=== PATIENT | male | born 1990 | race American Indian/Alaskan Native ===

== ENCOUNTER 2016-12-23 03:16 | Emergency (ER) | payer OTHER ==
[2016-12-23 03:32] VITALS: BP 102/64
--- NOTE | 2016-12-23 03:52 | Emergency Department Report ---
ED Male HPI - General Chief complaint: Urogenital-Male Stated complaint: POSS STD Time Seen by Provider: 12/23/16 03:43 Source: patient Mode of arrival: Ambulatory Limitations: No Limitations - History of Present Illness Initial comments: This is a 25-year-old male that presents with possibility STD exposure. Patient stated he was informed by sexual partner that she is currently STD positive. Patient denies pedal discharge, dysuria, polyuria, ulcers, chest pain , shortness of breath, nausea or vomiting. Patient does not seem toxic or ill in appearance. No signs of distress noted. Radiation: none denies other symptoms. denies: discharge, swelling, mass, rash, urinary retention, blood in urine, dysuria, fever, nausea/vomiting, incontinence - Related Data Previous Rx's Medication Instructions Recorded Last Taken Type levETIRAcetam [Keppra ORAL LIQ] 500 mg PO BID #1 bottle 06/24/15 Unknown Rx Allergies Allergy/AdvReac Type Severity Reaction Status Date / Time No Known Allergies Allergy Unverified 06/24/15 02:45 ED Review of Systems ROS: Stated complaint: POSS STD Other details as noted in HPI Constitutional: denies: chills, fever Eyes: denies: eye pain, eye discharge, vision change ENT: denies: ear pain, throat pain Respiratory: denies: cough, shortness of breath, wheezing Cardiovascular: denies: chest pain, palpitations Endocrine: no symptoms reported Gastrointestinal: denies: abdominal pain, nausea, diarrhea Genitourinary: denies: urgency, dysuria Musculoskeletal: denies: back pain, joint swelling, arthralgia Skin: denies: rash, lesions Neurological: denies: headache, weakness, paresthesias Psychiatric: denies: anxiety, depression Hematological/Lymphatic: denies: easy bleeding, easy bruising ED Past Medical Hx - Past Medical History Hx Seizures: Yes - Surgical History Past Surgical History?: No - Social History Smoking Status: Never Smoker Substance Use Type: None - Medications Home Medications: Home Medications Medication Instructions Recorded Confirmed Last Taken Type levETIRAcetam [Keppra ORAL LIQ] 500 mg PO BID #1 bottle 06/24/15 12/23/16 Unknown Rx ED Physical Exam - General Limitations: No Limitations General appearance: alert, in no apparent distress - Head Head exam: Present: atraumatic, normocephalic - Eye Eye exam: Present: normal appearance - ENT ENT exam: Present: mucous membranes moist - Neck Neck exam: Present: normal inspection - Respiratory Respiratory exam: Present: normal lung sounds bilaterally. Absent: respiratory distress - Cardiovascular Cardiovascular Exam: Present: regular rate, normal rhythm. Absent: systolic murmur, diastolic murmur, rubs, gallop - GI/Abdominal GI/Abdominal exam: Present: soft, normal bowel sounds - Rectal Rectal exam: Present: deferred - exam: Present: normal inspection. Absent: testicular tenderness, urethral discharge, scrotal swelling, vertical testicular lie External exam: Present: normal external exam. Absent: erythema, swelling, lesions, lacerations, ecchymosis, bleeding - Extremities Exam Extremities exam: Present: normal inspection - Back Exam Back exam: Present: normal inspection - Neurological Exam Neurological exam: Present: alert, oriented X3 - Psychiatric Psychiatric exam: Present: normal affect, normal mood - Skin Skin exam: Present: warm, dry, intact, normal color. Absent: rash ED Course Vital Signs 12/23/16 03:24 Temperature 97.7 F Pulse Rate 65 Respiratory 18 Rate Blood Pressure 102/64 Blood Pressure 102/64 [Left] O2 Sat by Pulse 99 Oximetry ED Medical Decision Making - Medical Decision Making ED course: 25-year-old male that presents with STD testing 1- I informed the patient that gonorrhea chlamydia results will not be available today but he can call back in 7 days to medical records to obtain results. I also instructed the patient that if he is concerned about STD exposure I can't treat him with Rocephin 250 mg IM and azithromycin 1 g by mouth in the ED. Patient stated he would rather wait for results and if positive then to be treated as an outpatient setting. 2- I informed the patient to call back in 7 days medical records to obtain results of gonorrhea chlamydia. 3- UA and gonorrhea chlamydia obtained and sent to lab. 4-at the time of discharge the patient does not seem toxic or ill in appearance. No signs of any distress noted. Patient agrees to follow-up with medical records for the results of gonorrhea/chlamydia. Patient agrees to discharge plan. No further questions nor by the patient. Critical care attestation.: If time is entered above; I have spent that time in minutes in the direct care of this critically ill patient, excluding procedure time. ED Disposition Clinical Impression: Screen for STD (sexually transmitted disease) Disposition: DISCHARGED TO HOME OR SELFCARE Is pt being admited?: No Does the pt Need Aspirin: No Condition: Stable Additional Instructions: Follow-up with [facility] medical records in 7 days for results of gonorrhea or chlamydia Follow-up with your primary care doctor in 3-5 days. Referrals: PRIMARY CARE, [Primary Care Provider] - 3-5 Days [facility] [Referring] - 3-5 Days Forms: Work/School Release Form(ED)
[2016-12-23 04:27] LABS: Bilirubin,Urine NEG (Negative); Blood,Urine NEG (Negative); Ketones,Urine NEG (Negative); Leukocyte Esterase,Urine NEG (Negative); Nitrite,Urine NEG (Negative); Protein,Urine <15 mg/dL mg/dL (Negative); Urobilinogen,Urine < 2.0 mg/dL (<2.0)
== END 2016-12-23 04:41 | disposition home or self-care (01) ==
LOC: ED 03:16
DX: Z11.3 Encounter for screening for infections with a predominantly sexual mode of transmission (principal)
CPT/HCPCS: 81001; 87591; 99283

== ENCOUNTER 2019-01-30 00:54 | Emergency (ER) | payer SELFPAY ==
[2019-01-30 01:00] VITALS: BP 131/83
== END 2019-01-30 02:18 | disposition left against medical advice (07) ==
LOC: ED 00:54
DX: R56.9 Unspecified convulsions (principal); Z53.21 Procedure and treatment not carried out due to patient leaving prior to being seen by health care provider

== ENCOUNTER 2019-03-19 13:31 | Emergency (ER) | payer SELFPAY ==
[2019-03-19] MEDS ORDERED: KEPPRA 1,000 MG/NS 0.75% 100ML 1,000 MG/100 ML BAG IV ONE (14:16)
[2019-03-19 14:38] LABS: Basophils % (Auto) 0.6 % (0.0-1.8); Eosinophils # (Auto) 0.1 K/mm3 (0.0-0.4); Eosinophils % (Auto) 1.3 % (0.0-4.3); Hematocrit 45.3 % (35.5-45.6); Hemoglobin 15.3 gm/dl (11.8-15.2); Lymphocytes % (Auto) 26.5 % (13.4-35.0); Mean Corpuscular HGB Conc 34 % (32-34); Mean Corpuscular Volume 77 fl (84-94); Monocytes # (Auto) 0.4 K/mm3 (0.0-0.8); Monocytes % (Auto) 9.3 % (0.0-7.3); Platelet Count 186 K/mm3 (140-440); Red Blood Count 5.86 M/mm3 (3.65-5.03); Red Cell Distribution Width 13.6 % (13.2-15.2)
--- NOTE | 2019-03-19 14:49 | Event Note ---
Date: 03/19/19 Medical screening examination: This is a 28-year-old gentleman who presents to the ER with a complaint of possible seizure. The patient states he is supposed to take Keppra, 1500 mg twice daily. He indicates he is not really been taking his medicines. Apparently, he was seen at [facility] earlier on today, for seizure. He doesn't know how he got to the hospital, but he thinks the EMS to come here. He indicates no midline cervical spine tenderness. The patient is playing on a cellular phone, it is noted to be playing with social media. He also yawns repeatedly during his initial screening examination. He is moving 4 extremities without difficulty he has been loaded with Keppra. Screening laboratory marianela dies, EKG ordered, noncontrast CT scan of brain ordered. Vital Signs 03/19/19 14:09 Temperature 98.7 F Pulse Rate 65 Respiratory 16 Rate Blood Pressure 112/67 O2 Sat by Pulse 100 Oximetry Lab Results 03/19/19 Range/Units 14:23 WBC 3.9 L (4.5-11.0) K/mm3 RBC 5.86 H (3.65-5.03) M/mm3 Hgb 15.3 H (11.8-15.2) gm/dl Hct 45.3 (35.5-45.6) % MCV 77 L (84-94) fl MCH 26 L (28-32) pg MCHC 34 (32-34) % RDW 13.6 (13.2-15.2) % Plt Count 186 (140-440) K/mm3 Lymph % (Auto) 26.5 (13.4-35.0) % Swift % (Auto) 9.3 H (0.0-7.3) % Eos % (Auto) 1.3 (0.0-4.3) % Baso % (Auto) 0.6 (0.0-1.8) % Lymph # 1.0 L (1.2-5.4) K/mm3 Swift # 0.4 (0.0-0.8) K/mm3 Eos # 0.1 (0.0-0.4) K/mm3 Baso # 0.0 (0.0-0.1) K/mm3 Seg Neutrophils % 62.3 (40.0-70.0) % Seg Neutrophils # 2.4 (1.8-7.7) K/mm3
[2019-03-19 14:53] LABS: BUN/Creatinine Ratio 13; Blood Urea Nitrogen 12 mg/dL (9-20); Calcium 9.4 mg/dL (8.4-10.2); Hemolysis Index 11
[2019-03-19 16:10] LABS: Bilirubin,Urine NEG (Negative); Blood,Urine NEG (Negative); Color,Urine Yellow (Yellow); Mucus,Urine FEW /HPF; Protein,Urine <15 mg/dL mg/dL (Negative); Urobilinogen,Urine < 2.0 mg/dL (<2.0)
[2019-03-19 16:21] LABS: Amphetamine Screen,Urine PRESUMPTIVE NEGATIVE; Benzodiazepines Screen,Urine PRESUMPTIVE NEGATIVE; Cannabinoid Screen,Urine PRESUMPTIVE NEGATIVE; Cocaine Screen,Urine PRESUMPTIVE NEGATIVE; Methadone Screen,Urine PRESUMPTIVE NEGATIVE; Opiate Screen,Urine PRESUMPTIVE NEGATIVE
--- NOTE | 2019-03-19 16:25 | Cat Scan Report ---
CT HEAD WITHOUT CONTRAST INDICATION : Seizure. TECHNIQUE: Axial imaging performed from the skull apex through the skull base without the use of con trast. All CT scans at this location are performed using CT dose reduction for ALARA by means of aut omated exposure control. COMPARISON: None FINDINGS: Parenchyma: No acute intracranial hemorrhage or parenchymal abnormality. Ventricles: Ventricles are normal in size and appear symmetric. Bones: No acute osseous abnormality. Sinuses: Sinuses and mastoid air cells are clear. Soft tissues: Soft tissues including the orbits appear normal. IMPRESSION: No acute abnormality. Signer Name: German Adhikari Jr, MD Signed: 03/19/2019 4:21 PM Workstation Name: [id number]
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
[2019-03-20] MEDS ORDERED: NON-FORMULARY (Levetiracetam [Keppra Tab] 1,500 MG) PO SCH (10:15)
[2019-03-20] MEDS ORDERED: KEPPRA PO SCH (11:00)
--- NOTE | 2019-03-20 12:39 | Consultation ---
History of Present Illness - Reason for Consult Consult date: 03/20/19 Reason for consult: Mental Health Evaluation Requesting physician: MOLLY TELLEZ - Chief Complaint Chief complaint: "I was upset" - History of Present Psychiatric Illness 28-year-old AA male who presented to the ER for seizure activity. Psychiatry was consulted because the patient showed the ER physician a text message stating t hat he wanted to kill himself. Today the patient was calm during the assessment. He stated that he had an argument with his girlfriend who told him she didn't want to be in a relationship anymore. He stated that her "words" hurt him and he didn't know what else to do. He stated that he felt "helpless" at the time when he sent the text message. He denies a previous suicide attempt nor a mental heal th dx when asked. He is adamant that he was upset yesterday. He denies SI/HI's and VH's. He denies erratic sleep and a poor appetite. He denies recreational drug use and a alcohol consumption (etoh). Medications and Allergies Allergies Allergy/AdvReac Type Severity Reaction Status Date / Time mushroom Allergy Unknown Verified 01/30/19 00:58 strawberry Allergy Unknown Verified 01/30/19 00:58 tomato Allergy Unknown Verified 01/30/19 00:58 Home Medications Medication Instructions Recorded Confirmed Last Taken Type ALBUTEROL Inhaler (OR & NICU) 2 puff IH Q6H PRN 03/19/19 03/19/19 Unknown History [Proair] levETIRAcetam [Keppra TAB] 1,500 mg PO QDAY 03/19/19 03/19/19 Unknown History Active Meds: Active Medications Levetiracetam (Keppra) 1,500 mg PO QDAY SHADI Last Admin: 03/20/19 11:05 Dose: 1,500 mg Documented by: Past psychiatric history - Past Medical History Past Medical History: seizures Past Surgical History: No surgical history, Other - past Psychiatric treatment and history psychiatric treatment history: Denies psy hx and a fam psy hx. - Social History Social history: lives with family Mental Status Exam - Vital signs Last Vital Signs Temp 97.7 F 03/20/19 07:00 Pulse 73 03/20/19 07:00 Resp 18 03/20/19 07:00 BP 109/71 03/20/19 07:00 Pulse Ox 99 03/20/19 07:00 - Exam Narrative exam: MSE: Appearance: calm Behavior: regular eye contact Speech: regular rate and tone l Mood: "okay" Affect: congruent to mood Thought Process: circumstantial Thought Content: denies SI/HI's and AVH's Motor Activity: sitting down Cognition: A/O x3 Insight: variable Judgment: poor Results Result Diagrams: 03/19/19 14:23 03/19/19 14:23 Abnormal lab results 03/19/19 03/19/19 03/19/19 Range/Units 14:23 14:23 14:23 WBC 3.9 L (4.5-11.0) K/mm3 RBC 5.86 H (3.65-5.03) M/mm3 Hgb 15.3 H (11.8-15.2) gm/dl MCV 77 L (84-94) fl MCH 26 L (28-32) pg Mellette % (Auto) 9.3 H (0.0-7.3) % Lymph # 1.0 L (1.2-5.4) K/mm3 Total Creatine Kinase (55-170) units/L Salicylates < 0.3 L (2.8-20.0) mg/dL Acetaminophen < 5.0 L (10.0-30.0) ug/mL 03/19/19 Range/Units 14:23 WBC (4.5-11.0) K/mm3 RBC (3.65-5.03) M/mm3 Hgb (11.8-15.2) gm/dl MCV (84-94) fl MCH (28-32) pg Mellette % (Auto) (0.0-7.3) % Lymph # (1.2-5.4) K/mm3 Total Creatine Kinase 224 H (55-170) units/L Salicylates (2.8-20.0) mg/dL Acetaminophen (10.0-30.0) ug/mL All other labs normal. Assessment and Plan Assessment and plan: Impression: MDD, Single Episode. Today the patient was calm during the assessment. DDx: R/O Bipolar DO, Adjustment DO Recommendation/Plan: Continue 1013. Gather collateral information. Risks/Benefits of SSRI's was discussed with the patient, he prefer talk therapy. Dispo: The patient was referred to inpatient psy services. Will staff with Dr. Mehul Rome.
[2019-03-20] MEDS ORDERED: TYLENOL PO ONE (21:20)
[2019-03-20] MEDS: KEPPRA PO SCH (21:58)
[2019-03-21] MEDS: KEPPRA PO SCH ×2 (11:04→22:29)
--- NOTE | 2019-03-21 14:04 | Progress Note ---
Subjective - Reason for Consult Consult date: 03/21/19 Reason for consult: Psychiatric Follow-up Evaluation - Chief Complaint Chief complaint: "I'm feeling great" Patient is a 28-year-old AA male who presented to the emergency room for seizure activity. Psychiatry was consulted because the patient showed the ER physician a text message stating that he wanted to kill himself. Today the patient is cooperative but very anxious during the assessment. He states" I bought my girlfriend a $50,000 wedding ring. I found out she was cheating on me. It caused me to have a seizure. I felt betrayed." Presents with grandiose delusions. Patient denies SI/HI's and A/VH's. Patient refuses medication for depression and anxiety. Mental Status Exam - Vital signs Last Vital Signs Temp 97.3 F L 03/21/19 08:00 Pulse 79 03/21/19 08:00 Resp 18 03/21/19 08:00 BP 126/84 03/21/19 08:00 Pulse Ox 98 03/21/19 08:00 - Exam Narrative exam: Mental Status Exam Appearance: anxious, hospital attire Behavior: regular eye contact Speech: regular rate and tone l Mood: "I feel great"; depressed, anxious Affect: congruent to mood Thought Process: circumstantial Thought Content: denies SI/HI's and AVH's ; grandiose delusions Motor Activity: ambulatory Cognition: A/O x 3 Insight: variable Judgment: poor Assessment and Plan Impression: MDD, Single Episode. Today the patient is cooperative but anxious during the assessment. Presents with grandiose delusions. DDx: R/O Bipolar DO, Adjustment DO Recommendation/Plan: 1. Continue 1013. 2. Gather collateral information. Risks/Benefits of SSRI's was discussed with th e patient, he prefer talk therapy. Unable to gather collateral, patient states his girlfriend is at work. Disposition: The patient was referred to inpatient psychiatric services. Will staff with Dr. Mehul Rome.
[2019-03-22 07:58] VITALS: BP 129/73
--- NOTE | 2019-03-22 08:52 | Progress Note ---
Subjective - Reason for Consult Consult date: 03/22/19 Reason for consult: Psychiatry Follow-up - Chief Complaint Chief complaint: "I am not suicidal" 28-year-old AA male who presented to the emergency room for seizure activity. Psychiatry was consulted because the patient showed the ER physician a text message stating that he wanted to kill himself. Today the patient was calm and cooperative during the assessment. Per collateral information from the patient's fiancee Debbie Dover at [id number], she stated that the patient was upset when he sent her the text message. She denies a past suicide attempt by the patient. She denies that the patient has a mental health dx. She stated the patient can return home once he is discharged. The patent denies SI/HI's and AVH's. Mental Status Exam - Vital signs Last Vital Signs Temp 97.9 F 03/22/19 07:56 Pulse 62 03/22/19 07:56 Resp 18 03/22/19 07:56 BP 129/73 03/22/19 07:56 Pulse Ox 99 03/22/19 07:56 - Exam Narrative exam: MSE: Appearance: calm, cooperative Behavior: regular eye contact Speech: regular rate and tone l Mood: "okay" Affect: congruent to mood Thought Process: linear Thought Content: denies SI/HI's and AVH's Motor Activity: sitting down Cognition: A/O x3 Insight: appropriate Judgment: appropriate Assessment and Plan Impression: MDD, Single Episode. Today the patient was calm during the assessment. The patient is no threat to self. DDx: R/O Bipolar DO, Adjustment DO Recommendation/Plan: Rescind 1013. Risks/Benefits of SSRI's was discussed with the patient, he prefer talk therapy. Dispo: The patient can follow up with [facility] for outpatient psy services. Will staff with Dr. Mehul Rome.
== END 2019-03-22 09:57 | disposition home or self-care (01) ==
LOC: EEVIPCON 13:31 → ED 13:31
DX: G40.909 Epilepsy, unspecified, not intractable, without status epilepticus (principal); F32.9 Major depressive disorder, single episode, unspecified; F41.9 Anxiety disorder, unspecified; F22 Delusional disorders; J45.909 Unspecified asthma, uncomplicated; R45.851 Suicidal ideations; Z91.018 Allergy to other foods; Z79.899 Other long term (current) drug therapy
CPT/HCPCS: 36415; 70450; 80048; 80307; 81001; 82550; 83735; 85025; 93005; 93010; 96365; 96366; 99285; J1953; 80320; G0480